=== PATIENT | male | born 1975 | race Caucasian/White ===

== ENCOUNTER 2019-11-24 08:28 | Emergency (ER) | payer OTHER ==
[2019-11-24 08:35] VITALS: BP 135/76; PULSE 74; TEMP 97.8; BMI 26.3
--- NOTE | 2019-11-24 09:22 | PDOC ---
History of Present Illness - General Chief Complaint: Pain Stated Complaint: ABD PAIN Time Seen by Provider: 11/24/19 08:37 History Source: Patient Exam Limitations: No Limitations - History of Present Illness Initial Comments: 11/24/19 09:03 44-year-old male denies past medical history, works for [employer] department presents complaining of left-sided abdominal wall pain which began 1 hour ago after twisting injury. States he was moving a 70 pound bag out of a closet, felt instant pain to left side of abdomen after twisting his body, "felt a pulling sensation ". Denies striking the ground, nausea, vomiting, back pain, urinary complaints, diarrhea, chest pain or any other injuries. Patient has not taken any pain medication. ROS: GENERAL/CONSTITUTIONAL: No fever, chills, weakness, dizziness HEAD, EYES, EARS, NOSE AND THROAT: No changes in vision, No ear pain or discharge, No sore throat CARDIOVASCULAR: No chest pain RESPIRATORY: No shortness of breath or cough GASTROINTESTINAL: Left-sided abdominal pain, denies nausea, vomiting, diarrhea or constipation GENITOURINARY: No dysuria MUSCULOSKELETAL: No neck or back pain SKIN: No rash NEUROLOGIC: No headache, vertigo, loss of consciousness, or loss of sensation PE: GENERAL: well-appearing, NAD HEAD: NCAT EYES: Pupils equal, round and reactive to light, sclera anicteric, conjunctiva clear ENT: pharynx: no erythema, no exudate, uvula midline NECK: supple CHEST: nontender RESP: clear, no w/r/r CARDIO: rrr, no m/g/r ABD: +BS, soft, nontender, non distended, no bulging or masses palpated BACK: no midline spinal ttp, no CVAT EXTREMITIES: Normal range of motion, no edema NEUROLOGICAL: Normal speech, normal gait SKIN: Warm, Dry Is this a multiple visit Asthma Patient?: No Past History - Past Medical History Allergies/Adverse Reactions: Allergies Allergy/AdvReac Type Severity Reaction Status Date / Time No Known Allergies Allergy Verified 11/24/19 08:31 Home Medications: Ambulatory Orders NK [No Known Home Medication] 11/24/19 COPD: No - Immunization History Td Vaccination: Yes Immunization Up to Date: Yes - Psycho Social/Smoking Cessation Hx Smoking Status: No Smoking History: Never smoked Number of Cigarettes Smoked Daily: 0 Information on smoking cessation initiated: No Hx Alcohol Use: No Drug/Substance Use Hx: No *Physical Exam - Vital Signs Last Vital Signs Temp Pulse Resp BP Pulse Ox 97.8 F 74 17 135/76 97 11/24/19 08:31 11/24/19 08:31 11/24/19 08:31 11/24/19 08:31 11/24/19 08:31 Medical Decision Making - Medical Decision Making 11/24/19 09:22 44-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 Vital signs are stable Benign abdominal exam Declines analgesia Note for work provided Strict return precautions advised Discharge - Discharge Information Problems reviewed: Yes Clinical Impression/Diagnosis: Muscle strain Condition: Stable Disposition: HOME - Admission No - Follow up/Referral - Patient Discharge Instructions Additional Instructions: Apply warm packs to area Take ibuprofen 600 mg every 6 hours as needed for pain Follow-up with your primary care doctor within 1 week If worsening pain, nausea, vomiting, back pain or any other concerns return to the ED - Post Discharge Activity
== END 2019-11-24 09:45 | disposition home or self-care (01) ==
LOC: JERFT 08:28
DX: S39.011A Strain of muscle, fascia and tendon of abdomen, initial encounter (principal); X50.1XXA Overexertion from prolonged static or awkward postures, initial encounter; Y93.89 Activity, other specified; Y92.89 Other specified places as the place of occurrence of the external cause; Y99.0 Civilian activity done for income or pay
CPT/HCPCS: 99281-25

== ENCOUNTER 2020-11-02 19:48 | Emergency (ER) | payer OTHER ==
[2020-11-02 19:54] VITALS: BP 141/90; PULSE 89; TEMP 98.5; BMI 26.6
== END 2020-11-02 20:50 | disposition home or self-care (01) ==
LOC: JER 19:48
DX: J70.5 Respiratory conditions due to smoke inhalation (principal)
CPT/HCPCS: 93005; 93010; 99283-25